=== PATIENT | male | born 1995 | race American Indian/Alaskan Native ===

== ENCOUNTER 2016-06-08 14:38 | Emergency (ER) | payer OTHER ==
[2016-06-08 15:29] VITALS: BP 131/82
[2016-06-08] MEDS ORDERED: DELTASONE PO ONE (16:46)
--- NOTE | 2016-06-08 17:14 | Emergency Department Report ---
Entered by SCOTT COTA, acting as scribe for ZAHEER YOON PA. ED Rash HPI - HPI Chief Complaint: Skin Rash Stated Complaint: RASH Time Seen by Provider: 06/08/16 16:11 Duration: 1 week Location: Chest, Back, Abdomen, Upper Extremities Suspected Cause: Unknown Rash Symptoms: No Itching, No Facial Swelling, No Tongue/Oral Swelling, No Breathing Difficulties, No Choking Sensation, No Wheezing/Dyspnea, No Peeling, No Blistering, No Fever, No Lightheaded, No Malaise, No Myalgias Severity: mild Other History: 20 year old male with no significant PMHx presents to the ED c/o a generalized rash that began 1 week ago. Patient states the rash has spreaded from his right arm to his chest, back, left arm, and lower extremeties. Denies fever, chills, nausea, vomiting, purulent drainage, chest pain, SOB, and headache. NKDA. ED Review of Systems ROS: Stated complaint: RASH Other details as noted in HPI Comment: All other systems reviewed and negative Constitutional: denies: chills, fever, other (tingling) ENT: denies: throat pain Respiratory: denies: cough, orthopnea, shortness of breath, SOB with exertion, SOB at rest, stridor Cardiovascular: denies: chest pain, dyspnea on exertion, orthopnea Gastrointestinal: denies: abdominal pain, nausea, vomiting Skin: rash (present on upper extremities and lower extremeties) Neurological: denies: headache, numbness ED Past Medical Hx - Past Medical History Previous Medical History?: No - Surgical History Past Surgical History?: No - Social History Smoking Status: Never Smoker Substance Use Type: None - Medications Home Medications: Home Medications Medication Instructions Recorded Confirmed Last Taken Type Prednisone [predniSONE 5 mg (6-Day 5 mg PO .TAPER #1 tab.ds.pk 06/08/16 Unknown Rx Pack, 21 Tabs)] Triamcinolone Acetonide 1 applic TP DAILY #1 bottle 06/08/16 Unknown Rx [Triamcinolone 0.1% LOTION] Rash Exam - Exam General: Vital signs noted. No distress. Alert and acting appropriately. General: Patient is alert and oriented x 3. No apparent distress, normal gait, atraumatic. HEENT: No Periorbital Edema, No Conjuctival Injection, No Chemosis, No Perioral Edema, No Tongue Edema, No Uvular Edema, No Compromised Airway, No Drooling Lungs: Yes Good Air Exchange, No Wheezes, No Ronchi, No Stridor, No Cough, No Labored Respirations, No Retractions, No Use of Accessory Muscles, No Other Abnormal Lung Sounds Heart: Yes Regular, No Murmur Skin: Yes Maculopapular Rash (present on lower and upper extremeties with no erythema or purulent drainage), No Urticarial Rash, No Morbilliform rash, No Bulla(e), No Excoriations, No Weeping, No Tenderness, No Erythema, No Edema, No Encrustations, No Other Other: Positive: Abdomen Normal, Neurologic Normal, Musculoskeletal Normal ED Course Vital Signs 06/08/16 15:24 Temperature 98.7 F Pulse Rate 80 Respiratory 16 Rate Blood Pressure 131/82 O2 Sat by Pulse 100 Oximetry ED Medical Decision Making - Medical Decision Making 19-year-old male presents with pityriasis rosea. ED course: Patient received 60 mg of prednisone. Discuss with patient and his mother because it is a is a self-limiting rash that lasts up to 6 weeks. Discuss the days of prednisone. Vital signs are normal patient is in no acute distress. Discussed the patient will follow-up. Primary care physician as well as legal file clerk if needed. Patient agrees and complies to follow-up. Critical care attestation.: If time is entered above; I have spent that time in minutes in the direct care of this critically ill patient, excluding procedure time. ED Disposition Clinical Impression: Pityriasis rosea, Rash and nonspecific skin eruption Disposition: DISCHARGED TO HOME OR SELFCARE Is pt being admited?: No Does the pt Need Aspirin: No Condition: Stable Instructions: Pityriasis rosea (ED) Prescriptions: Prednisone [predniSONE 5 mg (6-Day Pack, 21 Tabs)] 5 mg PO .TAPER #1 tab.ds.pk Triamcinolone Acetonide [Triamcinolone 0.1% LOTION] 1 applic TP DAILY #1 bottle Referrals: PRIMARY CARE, [Primary Care Provider] - 3-5 Days DANA MONACO MD [Referring] - 3-[address] [facility] [Outside] - 3-5 Days [facility] [Outside] - 3-5 Days Forms: Accompanied Note, Work/School Release Form(ED) Time of Disposition: 17:09 This documentation as recorded by the CIPRIANO he JASMINE,accurately reflects the service I personally performed and the decisions made by ,ZAHEER YOON PA.
== END 2016-06-08 17:26 | disposition home or self-care (01) ==
LOC: ED 14:38
DX: L42 Pityriasis rosea (principal); R21 Rash and other nonspecific skin eruption
CPT/HCPCS: 99282; J7512

== ENCOUNTER 2018-11-07 19:34 | Emergency (ER) | payer SELFPAY ==
[2018-11-07 20:18] VITALS: BP 140/93
--- NOTE | 2018-11-07 20:21 | Event Note ---
ED Screening Note ED Screening Note: This initial assessment/diagnostic orders/clinical plan/treatment(s) is/are subject to change based on patients health status, clinical progression and re- assessment by fellow clinical providers in the ED. Further treatment and workup at subsequent clinical providers discretion. Patient/guardian urged not to elope from the ED as their condition may be serious if not clinically assessed and managed. Initial orders include: 22 yo black male states that he has a painful abscess on gluteus zev x 1 week.
--- NOTE | 2018-11-07 21:09 | Emergency Department Report ---
- General Chief complaint: Skin/Abscess/Foreign Body Stated complaint: LOWER BACK PAIN Time Seen by Provider: 11/07/18 20:54 Source: patient Mode of arrival: Ambulatory Limitations: No Limitations - Related Data Previous Rx's Medication Instructions Recorded Last Taken Type Prednisone [predniSONE 5 mg (6-Day 5 mg PO .TAPER #1 tab.ds.pk 06/08/16 Unknown Rx Pack, 21 Tabs)] Triamcinolone Acetonide 1 applic TP DAILY #1 bottle 06/08/16 Unknown Rx [Triamcinolone 0.1% LOTION] Amoxicillin [Amoxicillin TAB] 875 mg PO BID 10 Days #20 tablet 11/07/18 Unknown Rx Doxycycline Hyclate [Doxycycline 100 mg PO Q12HR 10 Days #20 tab 11/07/18 Unknown Rx Hyclate TAB] HYDROcodone/APAP 5-325 [[place] 1 each PO Q4HR PRN #10 tablet 11/07/18 Unknown Rx 5/325] Allergies Allergy/AdvReac Type Severity Reaction Status Date / Time No Known Allergies Allergy Unverified 06/08/16 15:24 Abscess Boil HPI - HPI Chief Complaint: Skin/Abscess/Foreign Body Stated Complaint: LOWER BACK PAIN Time Seen by Provider: 11/07/18 20:54 Duration: 1 Week Location: Sacral/Pilonidal Severity: Severe History: Yes Pain, No Fever, No Purulent Drainage, No Numbness, No Foreign Body, No Previous History, No Insect Bite HPI: Patient is a 22-year-old male that presents emergency room with pain at the gluteal cleft 1 week. Patient states there is hard. Patient denies discharge. Patient denies fever and chills. Patient states the pain is 10 out of 10. Patient states the pain is worse with movement and sitting. Patient states the pain is better with rest and lying flat. Patient denies fever and chills. Home Medications: Previous Rx's Medication Instructions Recorded Last Taken Type Prednisone [predniSONE 5 mg (6-Day 5 mg PO .TAPER #1 tab.ds.pk 06/08/16 Unknown Rx Pack, 21 Tabs)] Triamcinolone Acetonide 1 applic TP DAILY #1 bottle 06/08/16 Unknown Rx [Triamcinolone 0.1% LOTION] Amoxicillin [Amoxicillin TAB] 875 mg PO BID 10 Days #20 tablet 11/07/18 Unknown Rx Doxycycline Hyclate [Doxycycline 100 mg PO Q12HR 10 Days #20 tab 11/07/18 Un known Rx Hyclate TAB] HYDROcodone/APAP 5-325 [[place] 1 each PO Q4HR PRN #10 tablet 11/07/18 Unknown Rx 5/325] Allergies/Adverse Reactions: Allergies Allergy/AdvReac Type Severity Reaction Status Date / Time No Known Allergies Allergy Unverified 06/08/16 15:24 ED Review of Systems ROS: Stated complaint: LOWER BACK PAIN Other details as noted in HPI Constitutional: denies: chills, fever Eyes: denies: eye pain, eye discharge, vision change ENT: denies: ear pain, throat pain Respiratory: denies: cough, shortness of breath, wheezing Cardiovascular: denies: chest pain, palpitations Endocrine: no symptoms reported Gastrointestinal: denies: abdominal pain, nausea, diarrhea Genitourinary: denies: urgency, dysuria Musculoskeletal: denies: back pain, joint swelling, arthralgia Skin: denies: rash, lesions Neurological: denies: headache, weakness, paresthesias Psychiatric: denies: anxiety, depression Hematological/Lymphatic: denies: easy bleeding, easy bruising ED Past Medical Hx - Past Medical History Previous Medical History?: No - Surgical History Past Surgical History?: No - Family History Family history: no significant - Social History Smoking Status: Never Smoker Substance Use Type: Marijuana - Medications Home Medications: Home Medications Medication Instructions Recorded Confirmed Last Taken Type Prednisone [predniSONE 5 mg (6-Day 5 mg PO .TAPER #1 tab.ds.pk 06/08/16 Unknown Rx Pack, 21 Tabs)] Triamcinolone Acetonide 1 applic TP DAILY #1 bottle 06/08/16 Unknown Rx [Triamcinolone 0.1% LOTION] Amoxicillin [Amoxicillin TAB] 875 mg PO BID 10 Days #20 tablet 11/07/18 Unknown Rx Doxycycline Hyclate [Doxycycline 100 mg PO Q12HR 10 Days #20 tab 11/07/18 Unknown Rx Hyclate TAB] HYDROcodone/APAP 5-325 [[place] 1 each PO Q4HR PRN #10 tablet 11/07/18 Unknown Rx 5/325] ED Physical Exam - General Limitations: No Limitations General appearance: alert, in no apparent distress - Head Head exam: Present: atraumatic, normocephalic - Eye Eye exam: Present: normal appearance - ENT ENT exam: Present: mucous membranes moist - Neck Neck exam: Present: normal inspection - Respiratory Respiratory exam: Present: normal lung sounds bilaterally. Absent: respiratory distress - Cardiovascular Cardiovascular Exam: Present: regular rate, normal rhythm. Absent: systolic murmur, diastolic murmur, rubs, gallop - GI/Abdominal GI/Abdominal exam: Present: soft, normal bowel sounds. Absent: distended, tenderness, guarding - Rectal Rectal exam: Present: other (hard cellulitic area noted in the gluteal cleft. Site is nonfluctuant.) - Extremities Exam Extremities exam: Present: normal inspection - Back Exam Back exam: Present: normal inspection - Neurological Exam Neurological exam: Present: alert, oriented X3 - Psychiatric Psychiatric exam: Present: normal affect, normal mood - Skin Skin exam: Present: warm, dry, intact, normal color. Absent: rash ED Course Vital Signs 11/07/18 19:56 Temperature 99.5 F Pulse Rate 78 Respiratory 18 Rate Blood Pressure 140/93 - Reevaluation(s) Reevaluation #1: I discussed all medical findings with patient. I discussed plan of care with patient. Patient agrees with plan of care. Patient is stable for discharge. Patient will be discharged home. Patient given discharge instructions. Patient voiced understanding of discharge instructions. 11/07/18 21:06 - Consultations Consultation #1: I discussed case with Dr. Burroughs, general surgery. Dr. Burroughs agrees with place patient on antibiotics and have him follow with him as an outpatient in the morning. 11/07/18 20:40 ED Medical Decision Making - Medical Decision Making Patient is a 22-year-old male that presents emergency room with complaints of a possible abscess to the gluteal cleft. Patient found to have a hard area that is nonfluctuant and is consistent with cellulitis. Patient's site is not ready to be drained. Patient given follow-up instructions to follow up with general surgery tomorrow. Patient placed on Doxy and amoxicillin. Patient given pain medications to be taken when necessary. Patient is stable for discharge. Patient discharged home. - Differential Diagnosis abscess, cellulitis Critical care attestation.: If time is entered above; I have spent that time in minutes in the direct care of this critically ill patient, excluding procedure time. ED Disposition Clinical Impression: Cellulitis Qualifiers: Site of cellulitis: unspecified site Qualified Code(s): L03.90 - Cellulitis, unspecified Disposition: TO HOME OR SELFCARE Is pt being admited?: No Does the pt Need Aspirin: No Condition: Stable Instructions: Cellulitis (ED) Additional Instructions: Patient to follow-up with primary care in 2-3 days. Patient to follow-up with Dr. Burroughs in the morning. Patient to call Dr. Burroughs's office at 9 AM for an afternoon appointment. Patient to apply warm compresses 7 times per day for at least 20 minutes each time. Patient to return to ER if condition worsens. Patient to rest. Patient to increase water. Patient to take meds as directed. Patient's take Tylenol or ibuprofen when necessary for pain. Prescriptions: Amoxicillin [Amoxicillin TAB] 875 mg PO BID 10 Days #20 tablet Doxycycline Hyclate [Doxycycline Hyclate TAB] 100 mg PO Q12HR 10 Days #20 tab HYDROcodone/APAP 5-325 [[place] 5/325] 1 each PO Q4HR PRN #10 tablet PRN Reason: Pain Referrals: MATTY BURROUGHS MD [Staff Physician] - [facility] Time of Disposition: 21:21
== END 2018-11-07 21:31 | disposition home or self-care (01) ==
LOC: ED 19:34
DX: L03.312 Cellulitis of back [any part except buttock and flank] (principal); F12.10 Cannabis abuse, uncomplicated

== ENCOUNTER 2018-11-14 08:12 | Emergency (ER) | payer SELFPAY ==
[2018-11-14 09:03] VITALS: BP 134/89
--- NOTE | 2018-11-14 09:08 | Emergency Department Report ---
- General Chief complaint: Skin/Abscess/Foreign Body Stated complaint: SYMPTOMS GETTING WORSE Time Seen by Provider: 11/14/18 08:52 Source: patient Mode of arrival: Ambulatory Limitations: No Limitations - History of Present Illness Initial comments: Patient is a 22-year-old male who presents emergency room with complaints of cellulitis to the gluteal cleft that began 2 weeks ago. Patient states he was evaluated in the emergency department on 11/07 and given a course of doxycycline. He states he has finished 7 days of the antibiotic but has 3 days left. States that the swelling has improved some and it did scab over and appear to get better but some days he sees the swelling more. He denies any drainage, fever, chills, nausea, vomiting, any other symptoms. He states he did not follow-up with a general surgeon. He denies any past medical history or history of diabetes. He denies any allergies medications. - Related Data Previous Rx's Medication Instructions Recorded Last Taken Type Prednisone [predniSONE 5 mg (6-Day 5 mg PO .TAPER #1 tab.ds.pk 06/08/16 Unknown Rx Pack, 21 Tabs)] Triamcinolone Acetonide 1 applic TP DAILY #1 bottle 06/08/16 Unknown Rx [Triamcinolone 0.1% LOTION] Amoxicillin [Amoxicillin TAB] 875 mg PO BID 10 Days #20 tablet 11/07/18 Unknown Rx Doxycycline Hyclate [Doxycycline 100 mg PO Q12HR 10 Days #20 tab 11/07/18 Unknown Rx Hyclate TAB] HYDROcodone/APAP 5-325 [[place] 1 each PO Q4HR PRN #10 tablet 11/07/18 Unknown Rx 5/325] Allergies Allergy/AdvReac Type Severity Reaction Status Date / Time No Known Allergies Allergy Unverified 06/08/16 15:24 Abscess Boil HPI - HPI Chief Complaint: Skin/Abscess/Foreign Body Stated Complaint: SYMPTOMS GETTING WORSE Time Seen by Provider: 11/14/18 08:52 Home Medications: Previous Rx's Medication Instructions Recorded Last Taken Type Prednisone [predniSONE 5 mg (6-Day 5 mg PO .TAPER #1 tab.ds.pk 06/08/16 Unknown Rx Pack, 21 Tabs)] Triamcinolone Acetonide 1 applic TP DAILY #1 bottle 06/08/16 Unknown Rx [Triamcinolone 0.1% LOTION] Amoxicillin [Amoxicillin TAB] 875 mg PO BID 10 Days #20 tablet 11/07/18 Unknown Rx Doxycycline Hyclate [Doxycycline 100 mg PO Q12HR 10 Days #20 tab 11/07/18 Unknown Rx Hyclate TAB] HYDROcodone/APAP 5-325 [[place] 1 each PO Q4HR PRN #10 tablet 11/07/18 Unknown Rx 5/325] Allergies/Adverse Reactions: Allergies Allergy/AdvReac Type Severity Reaction Status Date / Time No Known Allergies Allergy Unverified 06/08/16 15:24 ED Review of Systems ROS: Stated complaint: SYMPTOMS GETTING WORSE Other details as noted in HPI Comment: All other systems reviewed and negative ED Past Medical Hx - Past Medical History Previous Medical History?: No - Surgical History Past Surgical History?: No - Social History Smoking Status: Never Smoker Substance Use Type: None - Medications Home Medications: Home Medications Medication Instructions Recorded Confirmed Last Taken Type Prednisone [predniSONE 5 mg (6-Day 5 mg PO .TAPER #1 tab.ds.pk 06/08/16 Unknown Rx Pack, 21 Tabs)] Triamcinolone Acetonide 1 applic TP DAILY #1 bottle 06/08/16 Unknown Rx [Triamcinolone 0.1% LOTION] Amoxicillin [Amoxicillin TAB] 875 mg PO BID 10 Days #20 tablet 11/07/18 Unknown Rx Doxycycline Hyclate [Doxycycline 100 mg PO Q12HR 10 Days #20 tab 11/07/18 Unknown Rx Hyclate TAB] HYDROcodone/APAP 5-325 [[place] 1 each PO Q4HR PRN #10 tablet 11/07/18 Unknown Rx 5/325] ED Physical Exam - General Limitations: No Limitations General appearance: alert, in no apparent distress - Head Head exam: Present: atraumatic, normocephalic - Eye Eye exam: Present: normal appearance - ENT ENT exam: Present: mucous membranes moist - Neurological Exam Neurological exam: Present: alert, oriented X3 - Psychiatric Psychiatric exam: Present: normal affect, normal mood - Skin Skin exam: Present: warm, dry, other (healing/scabbed area to the right gluteal cleft, no erythema, no induration, no edema, no fluctuance, no increased warmth, no signs of infection) ED Course Vital Signs 11/14/18 08:38 Temperature 98.5 F Pulse Rate 95 H Respiratory 16 Rate Blood Pressure 134/89 O2 Sat by Pulse 98 Oximetry ED Medical Decision Making - Medical Decision Making Patient is a 22-year-old male who presents emergency room with complaints of cellulitis to the gluteal cleft that began 2 weeks ago. Patient states he was evaluated in the emergency department on 11/07 and given a course of doxycycline. He states he has finished 7 days of the antibiotic but has 3 days left. States that the swelling has improved some and it did scab over and appear to get better but some days he sees the swelling more. He denies any drainage, fever, chills, nausea, vomiting, any other symptoms. He states he did not follow-up with a general surgeon. He denies any past medical history or history of diabetes. He denies any allergies medications. vitals are normal. on exam: healing/scabbed area to the right gluteal cleft, no erythema, no induration, no edema, no fluctuance, no increased warmth, no signs of infection. appears that cellulitis has resolved. there is no abscess present. advised pt to please continue to keep area clean and dry. please finish your course of antibiotics. Please use a warm compress 3 times a day to the area. be sure to shower immediately after being outside or frequent sweating and keep area dry. Follow- up with a general surgeon as needed if symptoms return. Return to the emergency room for any new or worsening symptoms. - Differential Diagnosis cellulitis, abscess, sebaceous cyst, pilonidal cyst Critical care attestation.: If time is entered above; I have spent that time in minutes in the direct care of this critically ill patient, excluding procedure time. ED Disposition Clinical Impression: Encounter for wound re-check Disposition: -01 TO HOME OR SELFCARE Is pt being admited?: No Does the pt Need Aspirin: No Condition: Stable Additional Instructions: Please continue to keep area clean and dry. please finish your course of antibiotics. Please use a warm compress 3 times a day to the area. be sure to shower immediately after being outside or frequent sweating and keep area dry. Follow-up with a general surgeon as needed if symptoms return. Return to the emergency room for any new or worsening symptoms. Referrals: MATTY BURROUGHS MD [Staff Physician] - as needed Time of Disposition: 09:36 Print Language: [id number]
== END 2018-11-14 11:58 | disposition home or self-care (01) ==
LOC: ED 08:12
DX: L03.317 Cellulitis of buttock (principal); Z79.899 Other long term (current) drug therapy